=== PATIENT | female | born 1985 | race Caucasian/White ===

== ENCOUNTER 2022-02-06 09:32 | Outpatient (CLI) | payer BC, SELFPAY ==
[2022-02-06 14:01] LABS: Chloride* 107 mmol/L (96-114)
[2022-02-06 14:02] LABS: Potassium* 4.1 mmol/L (3.6-5.1); Sodium* 139 mmol/L (135-149)
[2022-02-06 14:04] LABS: Creatinine* 0.6 mg/dL (0.5-1.5); Estimated Glomerular Filt Rate 117 ml/min
[2022-02-06 14:05] LABS: Blood Urea Nitrogen* 11 mg/dL (5-24); Calcium* 9.3 mg/dL (8.4-10.6); Carbon Dioxide* 25 mmol/L (20-32); Glucose* 88 mg/dL (60-115)
== END 2022-02-06 09:33 | disposition home or self-care (01) ==
PROVIDERS: PCP Family Medicine; Visit Provider Family Medicine
DX: R00.2 Palpitations (principal)
CPT/HCPCS: 80048; 84443

== ENCOUNTER 2023-10-22 07:50 | Outpatient (CLI) | payer BC, SELFPAY ==
--- NOTE | 2023-10-22 08:15 | CRLHL7_ITS ---
For Patients: As a result of the Century Cures Act, medical imaging exams and procedure reports are released immediately into your electronic medical record. You may view this report before your referring provider. If you have questions, please contact your health care provider. BILATERAL DIGITAL SCREENING MAMMOGRAM WITH COMPUTER-AIDED DETECTION AND TOMOSYNTHESIS CLINICAL HISTORY: Routine screening exam. COMPARISON: None. TECHNIQUE: Digital mammogram in CC and MLO projections including computer-aided detection (CAD). Tomosynthesis was used in this interpretation. BREAST COMPOSITION: There are scattered areas of fibroglandular density. FINDINGS: RIGHT Breast: No suspicious findings LEFT Breast: Focal asymmetric density upper LEFT breast 7 cm from the nipple, MLO view only. IMPRESSION: LEFT breast asymmetry/mass. RECOMMENDATIONS: Additional mammographic views of the LEFT breast including 3D spot compression MLO and 3D true lateral. LEFT breast ultrasound may also be required. BI-RADS Category 0: Incomplete: Need Additional Imaging Evaluation and/or Prior Mammograms for Comparison. The [facility] will contact the patient for follow-up. A lay language report of this examination will be provided to the patient. Dictated by Earl Johns MD @ 10/22/2023 11:42:58 AM jj/Dictated by: Earl Johns MD @ 10/22/2023 11:42:00 AM (Electronically Signed)
== END 2023-10-22 07:51 | disposition home or self-care (01) ==
LOC: MAMMO 07:51
PROVIDERS: PCP Family Medicine; Visit Provider Family Medicine
DX: Z12.31 Encounter for screening mammogram for malignant neoplasm of breast (principal); N63.20 Unspecified lump in the left breast, unspecified quadrant
CPT/HCPCS: 77063; 77067

== ENCOUNTER 2023-10-29 09:27 | Outpatient (CLI) | payer BC, SELFPAY ==
--- NOTE | 2023-10-29 09:45 | CRLHL7_ITS ---
For Patients: As a result of the Cures Act, medical imaging exams and procedure reports are released immediately into your electronic medical record. You may view this report before your referring provider. If you have questions, please contact your health care provider. DIGITAL DIAGNOSTIC LEFT MAMMOGRAM USING TOMOSYNTHESIS AND COMPUTER-AIDED DETECTION LEFT BREAST ULTRASOUND CLINICAL HISTORY: LEFT breast mass/asymmetry. COMPARISON: 10/22/2023. TECHNIQUE: Digital LEFT mammogram in two projections. Tomosynthesis and CAD were used in this interpretation. Real-time ultrasound imaging of LEFT breast with imaging documentation. Scanning was performed by both the technologist and the radiologist. BREAST COMPOSITION: There are areas of scattered fibroglandular density. FINDINGS: 3D spot compression MLO and 3D true lateral LEFT breast mammogram images submitted. Suspicious density with architectural distortion on the spot MLO view at 12 o`clock posterior depth. Targeted LEFT breast ultrasound performed at 12 o`clock 7 cm from the nipple. In this location, there is a subtle hyperechoic lesion measuring 5 x 4 x 3 millimeters. IMPRESSION: Suspicious lesion LEFT breast 12 o`clock 7 cm from the nipple measuring 5 millimeters. RECOMMENDATIONS: Ultrasound-guided core biopsy. Results and recommendations discussed with the patient. BI-RADS Category 4: Suspicious A lay language report of this examination will be provided to the patient. Dictated by Earl Johns MD @ 10/29/2023 12:11:20 PM jan/Dictated by: Earl Johns MD @ 10/29/2023 12:11:00 PM (Electronically Signed)
--- NOTE | 2023-10-29 10:15 | CRLHL7_ITS ---
For Patients: As a result of the Century Cures Act, medical imaging exams and procedure reports are released immediately into your electronic medical record. You may view this report before your referring provider. If you have questions, please contact your health care provider. PLEASE SEE LEFT BREAST DIAGNOSTIC MAMMOGRAM PERFORMED SAME DAY. CRL:sp SP/Dictated by: Earl Johns MD @ 10/29/2023 12:11:00 PM (Electronically Signed)
== END 2023-10-29 09:28 | disposition home or self-care (01) ==
LOC: MAMMO 09:27
PROVIDERS: PCP Family Medicine; Visit Provider Family Medicine
DX: N63.20 Unspecified lump in the left breast, unspecified quadrant (principal); R92.8 Other abnormal and inconclusive findings on diagnostic imaging of breast
CPT/HCPCS: 76642; 77065; G0279

== ENCOUNTER 2023-11-04 08:42 | Outpatient (CLI) | payer BC, SELFPAY ==
--- NOTE | 2023-11-04 09:15 | CRLHL7_ITS ---
For Patients: As a result of the Century Cures Act, medical imaging exams and procedure reports are released immediately into your electronic medical record. You may view this report before your referring provider. If you have questions, please contact your health care provider. ULTRASOUND-GUIDED LEFT BREAST BIOPSY AND POST-BIOPSY DIGITAL MAMMOGRAM FOR BIOPSY MARKER PLACEMENT CLINICAL HISTORY: Indeterminate nodular area. COMPARISON STUDIES: 10/29/2023. TECHNIQUE: Real-time ultrasound with image documentation was used for targeting the breast lesion. Core biopsy specimens were obtained using an automated gun with a 18-gauge biopsy needle. Post-biopsy CC and ML digital mammograms were obtained to document position of the biopsy marker. CONSENT and TIME OUT: The procedure, risks, and alternatives were explained to the patient and a consent was signed. [place] Protocol was followed including pre-procedure verification that relevant information/documentation was available, reviewed and properly matched to the patient; consent accurate and complete; and equipment and supplies available. Time Out was conducted just prior to starting procedure to verify the four required elements: patient identity, correct side/site marked (if applicable), procedure, relevant images/results properly labeled and displayed (if applicable). PROCEDURE: The patient was positioned supine on the ultrasound table. The breast was prepped with ChloraPrep. 5 cc of 1 percent lidocaine used for local anesthesia. Core samples were obtained. A sterile metal biopsy clip was placed percutaneously to le the lesion position within the breast. The specimens were placed in 10% formalin and sent to the pathology department. Pressure was held on the biopsy site until all bleeding subsided. The skin incision was closed with Steri-Strips. An ice pack was positioned over the biopsy site. Post-biopsy instructions were reviewed with the patient, and a written copy was given to her. LATERALITY: LEFT breast. LESION: Subtle heterogeneous nodular focus measuring 5 mm at 12 o`clock 7 cm from the nipple. SUSPICION FOR MALIGNANCY: Intermediate. NUMBER OF SAMPLES: 5. BIOPSY CLIP SHAPE: Oval. PROXIMITY OF CLIP TO TARGET: Immediately adjacent to the lesion. IMPRESSION: Ultrasound-guided breast biopsy. When the pathology report is available, an addendum to this report will be made. ACR not applicable Dictated by Earl Johns MD @ 11/04/2023 12:23:33 PM /sp SP/Dictated by: Earl Johns MD @ 11/04/2023 12:23:00 PM (Electronically Signed)
--- NOTE | 2023-11-04 10:00 | CRLHL7_ITS ---
For Patients: As a result of the Century Cures Act, medical imaging exams and procedure reports are released immediately into your electronic medical record. You may view this report before your referring provider. If you have questions, please contact your health care provider. PLEASE SEE LEFT BREAST ULTRASOUND-GUIDED BIOPSY OF SAME DAY. CRL:sp SP/Dictated by: Earl Johns MD @ 11/04/2023 12:23:00 PM (Electronically Signed)
== END 2023-11-04 08:43 | disposition home or self-care (01) ==
LOC: US 08:42
PROVIDERS: PCP Family Medicine; Visit Provider Family Medicine
DX: N63.20 Unspecified lump in the left breast, unspecified quadrant (principal); R92.8 Other abnormal and inconclusive findings on diagnostic imaging of breast
CPT/HCPCS: 19083; 77065; 88305; A4648; A4649

== ENCOUNTER 2024-05-17 09:30 | Outpatient (CLI) | payer BC, SELFPAY ==
--- NOTE | 2024-05-17 09:45 | CRLHL7_ITS ---
For Patients: As a result of the Century Cures Act, medical imaging exams and procedure reports are released immediately into your electronic medical record. You may view this report before your referring provider. If you have questions, please contact your health care provider. DIGITAL DIAGNOSTIC LEFT MAMMOGRAM USING TOMOSYNTHESIS AND COMPUTER-AIDED DETECTION LEFT BREAST ULTRASOUND CLINICAL HISTORY: LEFT breast short-term follow-up post benign biopsy. COMPARISON: 11/04/23, 10/29/23, 10/22/23. TECHNIQUE: Digital LEFT mammogram in two projections with computer-aided detection. Tomosynthesis was used in this interpretation. Real-time ultrasound imaging of LEFT breast with imaging documentation. Scanning was performed by both the technologist and the radiologist. BREAST COMPOSITION: There are scattered areas of fibroglandular density. FINDINGS: 3D CC/MLO LEFT breast mammogram images submitted. Post biopsy changes are present. No suspicious mass or architectural distortion. No suspicious calcifications. Targeted LEFT breast ultrasound performed 12 o`clock 7 cm from the nipple. Post biopsy changes are present. No suspicious mass or fibrocystic change. IMPRESSION: No suspicious findings. RECOMMENDATIONS: Routine BILATERAL screening mammography. A lay language report of this examination will be provided to the patient. BI-RADS Category 2: Benign Dictated by Earl Johns MD @ 05/17/2024 10:19:48 AM jj/Dictated by: Earl oJhns MD @ 05/17/2024 10:19:00 AM (Electronically Signed)
--- NOTE | 2024-05-17 10:15 | CRLHL7_ITS ---
For Patients: As a result of the Cures Act, medical imaging exams and procedure reports are released immediately into your electronic medical record. You may view this report before your referring provider. If you have questions, please contact your health care provider. SEE DIGITAL DIAGNOSTIC LEFT MAMMOGRAM PERFORMED SAME DAY CRL:jan montoya/Dictated by: Earl Johns MD @ 05/17/2024 10:19:00 AM (Electronically Signed)
== END 2024-05-17 09:31 | disposition home or self-care (01) ==
LOC: MAMMO 09:30
PROVIDERS: PCP Family Medicine; Visit Provider Family Medicine
DX: N63.20 Unspecified lump in the left breast, unspecified quadrant (principal)
CPT/HCPCS: 76642; 77065; G0279

== ENCOUNTER 2024-08-10 08:33 | Outpatient (CLI) | payer BC, SELFPAY ==
[2024-08-13 20:21] LABS: HPV Source Cervix; HPV, High Risk by TMA Not Detected
== END 2024-08-10 08:34 | disposition home or self-care (01) ==
PROVIDERS: PCP Family Medicine; Visit Provider Family Medicine
DX: Z12.4 Encounter for screening for malignant neoplasm of cervix (principal); Z11.51 Encounter for screening for human papillomavirus (HPV)
CPT/HCPCS: 87624; 87625; 88141; 88142